=== PATIENT | female | born 1980 | race Caucasian/White ===

== ENCOUNTER 2023-04-20 19:26 | Emergency (ER) | payer BC ==
[~2023-04-20] VITALS: Ht 167.6 cm; Wt 65.8 kg
[2023-04-20 20:16] VITALS: BP 131/73; TEMP 97.9; O2SAT 100
== END 2023-04-20 20:17 | disposition left against medical advice (07) ==
LOC: ER 19:30
DX: R07.81 Pleurodynia (principal); R06.02 Shortness of breath